=== PATIENT | female | born 1950 | race Caucasian/White ===

== ENCOUNTER 2024-02-11 20:30 | Emergency (ER) | payer BC, MEDICARE ==
[2024-02-11 20:48] VITALS: TEMP 98.2
--- NOTE | 2024-02-11 22:00 | ED ---
General Adult HPI - General Chief complaint: Nausea/Vomiting/Diarrhea Stated complaint: diarrhea, shoulder pain Time Seen by Provider: 02/11/24 21:19 Source: patient, RN notes reviewed Mode of arrival: wheelchair Limitations: no limitations - History of Present Illness Initial comments: 73-year-old female with past medical history significant for COPD presenting to the ED with a chief complaint of diarrhea. Patient reports for the past 70 days has had nonbloody diarrhea with associated abdominal pain. States that today, recently started to use Imodium which has resolved this diarrhea and has no further complaints of diarrhea. However, still notes ongoing abdominal pain which is diffuse in nature. reports that she had some nausea earlier in the week however this has resolved at this time. Patient reports that she has ongoing complaints of chest pain and shortness of breath however this is not worse than usual. States today, her left shoulder started to hurt. Denies any known injury or trauma. No fever or chills. No other complaints at this time. - Related Data Allergies Allergy/AdvReac Type Severity Reaction Status Date / Time Opioids - Morphine Analogues AdvReac Hallucinati Verified 02/11/24 20:38 ons Sulfa (Sulfonamide AdvReac Anaphylaxis Verified 02/11/24 20:38 Antibiotics) Review of Systems ROS Statement: Those systems with pertinent positive or pertinent negative responses have been documented in the HPI. ROS Other: All systems not noted in ROS Statement are negative. Past Medical History Past Medical History: Diabetes Mellitus, Hypertension History of Any Multi-Drug Resistant Organisms: None Reported Past Surgical History: Back Surgery Additional Past Surgical History / Comment(s): triple bypass Past Psychological History: Depression Smoking Status: Current some day smoker Past Alcohol Use History: None Reported Past Drug Use History: None Reported General Exam Limitations: no limitations General appearance: alert Eye exam: Present: normal appearance Neck exam: Present: normal inspection Respiratory exam: Present: normal lung sounds bilaterally. Absent: respiratory distress, accessory muscle use Cardiovascular Exam: Present: regular rate GI/Abdominal exam: Present: soft (Diffuse abdominal tenderness to palpation. No rebound guarding or rigidity. Bowel sounds present.) Neurological exam: Present: alert, oriented X3 Skin exam: Present: warm, dry Course Vital Signs 02/11/24 02/11/24 02/11/24 20:32 22:37 23:54 Temperature 98.2 F Pulse Rate 58 L 52 L 52 L Respiratory 18 18 18 Rate Blood Pressure 147/79 184/79 169/63 O2 Sat by Pulse 97 96 96 Oximetry Medical Decision Making - Medical Decision Making Was pt. sent in by a medical professional or institution ([facility], [facility], urgent care, hospital, or [place] [facility] [place] facility...) When possible be specific @ -No Did you speak to anyone other than the patient for history (EMS, parent, family, police, friend...)? What history was obtained from this source @ -No Did you review nursing and triage notes (agree or disagree)? Why? @ -I reviewed and agree with nursing and triage notes Were old charts reviewed (outside hosp., previous admission, EMS record, old EKG, old radiological studies, urgent care reports/EKG's, [place] health care facility records)? Report findings @ -No old charts were reviewed Differential Diagnosis (chest pain, altered mental status, abdominal pain women, abdominal pain men, vaginal bleeding, weakness, fever, dyspnea, syncope, hea dache, dizziness, GI bleed, back pain, seizure, CVA, palpatations, mental health, musculoskeletal)? @ -Differential Abdominal Pain Women: Appendicitis, Cholecystitis, diverticulosis, ischemic bowel, pancreatitis, hepatitis, UTI, gastroenteritis, AAA, incarcerated hernia, bowel obstruction, constipation, inflammatory bowel, hepatitis, peptic ulcer disease, splenic infarction, perforated viscus, vulvitis, ovarian torsion, PID, kidney stone, placenta abruption, this is not meant to be an all-inclusive list Differential Chest Pain: Stable Angina, Unstable Angina, STEMI, NSTEMI Aortic Dissection, Pneumothorax, Musculoskeletal, Esophageal Spasm GERD, Cholecystitis, Pancreatitis, Zoster, this is not meant to be an all-inclusive list. EKG interpreted by me (3pts min.). @ -EKG interpreted by me showing a sinus bradycardia at [address] T wave changes, MN 188, QRS 96, QT/QTc 436/506. No old for comparison. X-rays interpreted by me (1pt min.). @ -Chest x-ray interpreted me which revealed trace left pleural effusion, no other findings. Shoulder x-ray interpreted me which revealed no evidence of acute finding. CT interpreted by me (1pt min.). @ -CT abdomen pelvis interpreted me which revealed no evidence of acute finding. U/S interpreted by me (1pt. min.). @ -None done What testing was considered but not performed or refused? (CT, X-rays, U/S, labs)? Why? @ -None What meds were considered but not given or refused? Why? @ -None Did you discuss the management of the patient with other professionals (professionals i.e. , PA, [facility], lab, RT, psych nurse, social director, waiter/waitress room service, teacher, combat information center officer, patient case coordinator)? Give summary @ -No Was smoking cessation discussed for >3mins.? @ -No Was critical care preformed (if so, how long)? @ -No Were there social determinants of health that impacted care today? How? (Homelessness, low income, unemployed, alcoholism, drug addiction, transportation, low edu. Level, literacy, decrease access to med. care, retirement, rehab)? @ -No Was there de-escalation of care discussed even if they declined (Discuss DNR or withdrawal of care, Hospice)? DNR status @ -No What co-morbidities impacted this encounter? (DM, HTN, Smoking, COPD, CAD, Cancer, CVA, ARF, Chemo, Hep., AIDS, mental health diagnosis, sleep apnea, morbid obesity)? @ -None Was patient admitted / discharged? Hospital course, mention meds given and route, prescriptions, significant lab abnormalities, going to OR and other pertinent info. @ -Discharge 73-year-old female presents to the ED with complaints of diffuse abdominal pain for the past week with some nonbloody diarrhea as well. Also notes left shoulder pain today no known trauma. Laboratory studies reviewed. CBC does show an elevated white blood cell count of 12.9. Chemistry panel largely unremarkable however is finding of hypomagnesemia at 1.0. Lipase was also elevated at 307. EKG showed diffuse ST T wave changes however at this time patient denies chest pain or shortness of breath. Serial troponins were performed which were both undetectable. Urine unremarkable. Magnesium was repleted. Chest x-ray reviewed which revealed no evidence of acute finding. Shoulder x-ray revealed no evidence of acute finding. CT abdomen pelvis revealed no evidence of acute finding. Patient reported significant improvement of pain with analgesia provided here. Secondary to EKG findings patient was offered observation stay however at this time would like to go home and follow- up with her counter person. Discharged home in stable condition. Discussed tricked return precautions with patient who verbalized agreement. Undiagnosed new problem with uncertain prognosis? @ -No Drug Therapy requiring intensive monitoring for toxicity (Heparin, Nitro, Insulin, Cardizem)? @ -No Were any procedures done? @ -No Diagnosis/symptom? @ -Abdominal pain, shoulder pain, diarrhea, hypomagnesemia Acute, or Chronic, or Acute on Chronic? @ -Acute Uncomplicated (without systemic symptoms) or Complicated (systemic symptoms)? @ -Uncomplicated Side effects of treatment? @ -No Exacerbation, Progression, or Severe Exacerbation? @ -No Poses a threat to life or bodily function? How? (Chest pain, USA, SD, pneumonia, PE, COPD, DKA, ARF, appy, cholecystitis, CVA, Diverticulitis, Homicidal, Suicidal, threat to staff... and all critical care pts) @ -No - Lab Data Result diagrams: 02/11/24 22:18 02/11/24 22:18 Lab Results 02/11/24 02/11/24 02/11/24 Range/Units 22:18 22:18 22:18 WBC 12.9 H (3.8-10.6) k/uL RBC 3.95 (3.80-5.40) m/uL Hgb 12.2 (11.4-16.0) gm/dL Hct 36.8 (34.0-46.0) % MCV 93.3 (80.0-100.0) fL MCH 31.0 (25.0-35.0) pg MCHC 33.3 (31.0-37.0) g/dL RDW 13.7 (11.5-15.5) % Plt Count 349 (150-450) k/uL MPV 10.8 Neutrophils % 81 % Lymphocytes % 9 % Monocytes % 7 % Eosinophils % 1 % Basophils % 0 % Neutrophils # 10.5 H (1.3-7.7) k/uL Lymphocytes # 1.2 (1.0-4.8) k/uL Monocytes # 0.9 (0-1.0) k/uL Eosinophils # 0.1 (0-0.7) k/uL Basophils # 0.1 (0-0.2) k/uL PT 11.0 (10.0-12.5) sec INR 1.0 (<1.2) APTT 24.5 (22.0-30.0) sec Sodium 134 L (137-145) mmol/L Potassium 3.5 (3.5-5.1) mmol/L Chloride 99 (98-107) mmol/L Carbon Dioxide 28 (22-30) mmol/L Anion Gap 7 mmol/L BUN 24 H (7-17) mg/dL Creatinine 0.87 (0.52-1.04) mg/dL Est GFR (CKD-EPI)AfAm 76 (>60 ml/min/1.73 sqM) Est GFR (CKD-EPI)NonAf 66 (>60 ml/min/1.73 sqM) Glucose 223 H (74-99) mg/dL Calcium 9.4 (8.4-10.2) mg/dL Magnesium 1.0 L (1.6-2.3) mg/dL Total Bilirubin 0.5 (0.2-1.3) mg/dL AST 27 (14-36) U/L ALT 16 (4-34) U/L Alkaline Phosphatase 47 (38-126) U/L Troponin I (0.000-0.034) ng/mL Total Protein 6.3 (6.3-8.2) g/dL Albumin 3.5 (3.5-5.0) g/dL Amylase 82 (30-110) U/L Lipase 307 H (23-300) U/L Urine Color Urine Appearance (Clear) Urine pH (5.0-8.0) Ur Specific [place] (1.001-1.035) Urine Protein (Negative) Urine Glucose (UA) (Negative) Urine Ketones (Negative) Urine Blood (Negative) Urine Nitrite (Negative) Urine Bilirubin (Negative) Urine Urobilinogen (<2.0) mg/dL Ur Leukocyte Esterase (Negative) 02/11/24 02/11/24 02/12/24 Range/Units 22:18 23:53 01:10 WBC (3.8-10.6) k/uL RBC (3.80-5.40) m/uL Hgb (11.4-16.0) gm/dL Hct (34.0-46.0) % MCV (80.0-100.0) fL MCH (25.0-35.0) pg MCHC (31.0-37.0) g/dL RDW (11.5-15.5) % Plt Count (150-450) k/uL MPV Neutrophils % % Lymphocytes % % Monocytes % % Eosinophils % % Basophils % % Neutrophils # (1.3-7.7) k/uL Lymphocytes # (1.0-4.8) k/uL Monocytes # (0-1.0) k/uL Eosinophils # (0-0.7) k/uL Basophils # (0-0.2) k/uL PT (10.0-12.5) sec INR (<1.2) APTT (22.0-30.0) sec Sodium (137-145) mmol/L Potassium (3.5-5.1) mmol/L Chloride (98-107) mmol/L Carbon Dioxide (22-30) mmol/L Anion Gap mmol/L BUN (7-17) mg/dL Creatinine (0.52-1.04) mg/dL Est GFR (CKD-EPI)AfAm (>60 ml/min/1.73 sqM) Est GFR (CKD-EPI)NonAf (>60 ml/min/1.73 sqM) Glucose (74-99) mg/dL Calcium (8.4-10.2) mg/dL Magnesium (1.6-2.3) mg/dL Total Bilirubin (0.2-1.3) mg/dL AST (14-36) U/L ALT (4-34) U/L Alkaline Phosphatase (38-126) U/L Troponin I <0.012 <0.012 (0.000-0.034) ng/mL Total Protein (6.3-8.2) g/dL Albumin (3.5-5.0) g/dL Amylase (30-110) U/L Lipase (23-300) U/L Urine Color Colorless Urine Appearance Clear (Clear) Urine pH 5.0 (5.0-8.0) Ur Specific [place] 1.011 (1.001-1.035) Urine Protein Negative (Negative) Urine Glucose (UA) 1+ H (Negative) Urine Ketones Negative (Negative) Urine Blood Negative (Negative) Urine Nitrite Negative (Negative) Urine Bilirubin Negative (Negative) Urine Urobilinogen <2.0 (<2.0) mg/dL Ur Leukocyte Esterase Negative (Negative) Disposition Clinical Impression: Abdominal pain, Left shoulder pain, Diarrhea Disposition: HOME SELF-CARE Condition: Good Instructions (If sedation given, give patient instructions): Gastroenteritis (ED) Additional Instructions: Please return to the Emergency Department if symptoms worsen or any other concerns. Please follow-up with your PCP and counter person. Is patient prescribed a controlled substance at d/c from ED?: No Referrals: Yanira Jimenez MD [Primary Care Provider] - 1-2 days Time of Disposition: 02:32
[2024-02-11] MEDS: SODIUM CHLORIDE 0.9% 1,000 ML IV STA (22:26)
[2024-02-11] MEDS: KETOROLAC 15 MG/ML 1 ML VIAL IM STA (22:28)
[2024-02-11] MEDS: ACETAMINOPHEN TAB 500 MG TAB PO STA (22:32)
[2024-02-11 22:36] LABS: Partial Thromboplastin Time 24.5 sec (22.0-30.0)
[2024-02-11 22:38] LABS: Basophils # (A) 0.1 k/uL (0-0.2); Basophils % (A) 0 %; Eosinophils # (A) 0.1 k/uL (0-0.7); Eosinophils % (A) 1 %; HCT 36.8 % (34.0-46.0); HGB 12.2 gm/dL (11.4-16.0); Lymphocytes # (A) 1.2 k/uL (1.0-4.8); Lymphocytes % (A) 9 %; MCHC 33.3 g/dL (31.0-37.0); MCV 93.3 fL (80.0-100.0); Mean Platelet Volume 10.8; Monocytes # (A) 0.9 k/uL (0-1.0); Monocytes % (A) 7 %; Neutrophils # (A) 10.5 k/uL (1.3-7.7); Neutrophils % (A) 81 %; Platelet Count 349 k/uL (150-450); RBC 3.95 m/uL (3.80-5.40); RDW 13.7 % (11.5-15.5); WBC 12.9 k/uL (3.8-10.6)
[2024-02-11 22:39] LABS: ALT 16 U/L (4-34); AST 27 U/L (14-36); African American GFR (CKD) 76 (>60 ml/min/1.73 sqM); Albumin 3.5 g/dL (3.5-5.0); Alkaline Phosphatase 47 U/L (38-126); Amylase 82 U/L (30-110); Anion Gap 7 mmol/L; Blood Urea Nitrogen 24 mg/dL (7-17); Calcium 9.4 mg/dL (8.4-10.2); Carbon Dioxide 28 mmol/L (22-30); Chloride 99 mmol/L (98-107); Glucose 223 mg/dL (74-99); Lipase 307 U/L (23-300); Non-African American GFR(CKD) 66 (>60 ml/min/1.73 sqM); Potassium 3.5 mmol/L (3.5-5.1); Sodium 134 mmol/L (137-145); Total Bilirubin 0.5 mg/dL (0.2-1.3); Total Protein 6.3 g/dL (6.3-8.2)
--- NOTE | 2024-02-11 23:58 | CT ---
EXAM: CT Abdomen and Pelvis With Intravenous Contrast CLINICAL HISTORY: ITS.REASON CT Reason: diffuse abdominal pain TECHNIQUE: Axial computed tomography images of the abdomen and pelvis with intravenous contrast. CTDI is 20.2 mGy and DLP is 912.1 mGy-cm. This CT exam was performed using one or more of the following dose reduction techniques: automated exposure control, adjustment of the mA and/or kV according to patient size, and/or use of iterative reconstruction technique. COMPARISON: No relevant prior studies available. FINDINGS: Lung bases: Unremarkable. No mass. No consolidation. ABDOMEN: Liver: Hepatic steatosis. Gallbladder and bile ducts: Cholecystectomy. No ductal dilation. Pancreas: Unremarkable. No mass. No ductal dilation. Spleen: Unremarkable. No splenomegaly. Adrenals: Unremarkable. No mass. Kidneys and ureters: Unremarkable. No hydronephrosis or delayed nephrogram. Stomach and bowel: Diverticulosis, without acute diverticulitis. No small bowel obstruction. No free intraperitoneal air. PELVIS: Appendix: Normal appendix. Bladder: Unremarkable. No mass. Reproductive: RIGHT ovarian cyst measures 4.5 x 3 cm. Atrophy of the uterus. ABDOMEN and PELVIS: Intraperitoneal space: Unremarkable. No free air. No significant fluid collection. Bones/joints: Degenerative changes of the spine. No acute fracture. No dislocation. Soft tissues: Unremarkable. Vasculature: Atherosclerotic changes of the aorta. No abdominal aortic aneurysm. Lymph nodes: Unremarkable. No enlarged lymph nodes. IMPRESSION: 1. Normal appendix. 2. Hepatic steatosis. 3. Cholecystectomy. 4. RIGHT ovarian cyst measures 4.5 x 3 cm. Nonemergent pelvic ultrasound correlation recommended. Posterior fusion L4-S1. 5. Diverticulosis, without acute diverticulitis. No small bowel obstruction. No free intraperitoneal air.
[2024-02-12 00:21] LABS: Appearance,Urine Clear (Clear); Bilirubin,Urine Negative (Negative); Blood,Urine Negative (Negative); Color,Urine Colorless; Glucose,Urine (UA) 1+ (Negative); Ketones,Urine Negative (Negative); Leukocyte Esterase,Urine Negative (Negative); Nitrite,Urine Negative (Negative); Protein,Urine Negative (Negative); Specific Gravity,Urine 1.011 (1.001-1.035); Urobilinogen,Urine <2.0 mg/dL (<2.0)
--- NOTE | 2024-02-12 00:39 | XR ---
EXAM: XR Chest, 2 Views CLINICAL HISTORY: ITS.REASON XR Reason: Chest Pain TECHNIQUE: Frontal and lateral views of the chest. COMPARISON: No relevant prior studies available. FINDINGS: Lungs: Unremarkable. No consolidation. Pleural space: Trace LEFT pleural effusion. No pneumothorax. Heart: Cardiomegaly. Mediastinum: Unremarkable. Normal mediastinal contour. Bones/joints: Sternotomy wires. No acute fracture. IMPRESSION: Trace LEFT pleural effusion.
--- NOTE | 2024-02-12 00:41 | XR ---
EXAM: XR Left Shoulder Complete, 2 or More Views CLINICAL HISTORY: ITS.REASON XR Reason: left shoulder pain TECHNIQUE: Two or more views of the left shoulder. COMPARISON: No relevant prior studies available. FINDINGS: Limitations: Evaluation limited due to suboptimal patient positioning. Bones/joints: Osseous demineralization. No fracture or subluxation. Soft tissues: Unremarkable. IMPRESSION: No fracture or subluxation.
[2024-02-12] MEDS: MAGNESIUM SULFATE-D5W PMX 1 GM in DEXTROSE/WATER 1 100ML.BAG IVPB SCH (03:01)
[2024-02-12 04:59] VITALS: BP 151/72; PULSE 54; RESP 14
== END 2024-02-12 05:31 | disposition home or self-care (01) ==
LOC: EC 20:30
DX: K76.0 Fatty (change of) liver, not elsewhere classified (principal); N83.201 Unspecified ovarian cyst, right side; M25.512 Pain in left shoulder; E83.42 Hypomagnesemia; F17.200 Nicotine dependence, unspecified, uncomplicated; Z88.2 Allergy status to sulfonamides; Z88.5 Allergy status to narcotic agent
CPT/HCPCS: 36415 ×2; 93005; 80053; 82150; 83690; 83735; 84484 ×2; 85025; 85610; 85730; 81003; 73030; 71046; 74177; 99285; 96372; 96365; 96366; 96361; J3475; J1885; Q9967

== ENCOUNTER 2024-07-28 07:58 | Day surgery (SDC) | payer MEDICARE ==
[~2024-07-28 07:58] MED LIST: LIDOCAINE 1% (10MG/ML) FOR IV START INTRADERMA PRN
[2024-07-28] MEDS: IV FLUID CONTINUATION 1,000 ML IV ONE (08:16)
[2024-07-28 08:24] VITALS: TEMP 97
[2024-07-28] MEDS: LACTATED RINGERS 1,000 ML IV SCH (08:31)
[2024-07-28] MEDS ORDERED: PROPOFOL 10 MG/ML 20 ML VIAL IV ONE (09:12)
--- NOTE | 2024-07-28 09:39 | P.PCN ---
Date of Procedure: 07/28/24 Procedure(s) Performed: BRIEF HISTORY: Patient is a 69-year-old pleasant white female scheduled for an elective colonoscopy as a part of dilation points of colon polyps and chronic diarrhea for the last 6 months duration. PROCEDURE PERFORMED: Colonoscopy. PREOPERATIVE DIAGNOSIS: History of colon polyps and chronic diarrhea. IV sedation per Anesthesia. PROCEDURE: After informed consent was obtained, the patient, was brought into the endoscopy unit. IV sedation was administered by Anesthesia under continuous monitoring. Digital rectal examination was normal. Initially the Olympus CF-160 flexible video colonoscope was then inserted in the rectum, gradually advanced into the cecum without any difficulty. Careful examination was performed as the scope was gradually being withdrawn. Ileocecal valve and the appendiceal orifice were visualized and appeared normal. Prep was excellent. Mucosa of the cecum, ascending colon, transverse colon, descending colon, sigmoid colon, and rectum appeared normal. Scattered sigmoid diverticulosis. Random biopsies were done from the ascending and descending colon to evaluate for microscopic/collagenous colitis retroflexion was performed in the rectum and no lesions were seen. The patient tolerated the procedure well. IMPRESSION: Normal-appearing colon from rectum to cecum no evidence of colorectal neoplasia Scattered sigmoid diverticulosis. . RECOMMENDATIONS: Findings of this examination were discussed with the patient as well as her family. She was advised to follow-up with the biopsy results. Continue with Imodium as needed for chronic diarrhea.
[2024-07-28 10:28] VITALS: BP 136/72; PULSE 62; RESP 18
== END 2024-07-28 10:20 | disposition home or self-care (01) ==
LOC: ORWHC2ENDO 07:58
PROVIDERS: ATTEND Internal Medicine Gastroenterology
DX: K52.9 Noninfective gastroenteritis and colitis, unspecified (principal); K57.30 Diverticulosis of large intestine without perforation or abscess without bleeding; Z86.0100 Personal history of colon polyps, unspecified; Z79.899 Other long term (current) drug therapy; Z79.84 Long term (current) use of oral hypoglycemic drugs
CPT/HCPCS: 88305; 45380; J2704

== ENCOUNTER → 2024-08-17 | Outpatient (CLI) | payer MEDICARE ==
--- NOTE | 2024-08-17 23:38 | MR ---
EXAMINATION TYPE: MR shoulder LT wo con DATE OF EXAM: 08/17/2024 11:49 AM COMPARISON: Left shoulder x-ray February 11, 2024. CLINICAL INDICATION: Female, 74 years old with history of M25.512 L SHOULDER PAIN, Left shoulder pain with difficulty raising arm overhead since January. TECHNIQUE: Multiplanar, multisequence imaging of the left shoulder is performed without contrast. FINDINGS: Rotator Cuff: Full-thickness retracted tears of the supraspinatus and infraspinatus tendons. Heteroge neous subscapularis tendon with at least partial tearing. There is moderate atrophy of all the rotato r cuff muscles. Acromioclavicular Joint: Moderate narrowing with mild spurring. Glenohumeral Joint: High riding humeral head is seen. Severe narrowing superiorly is present. No sign ificant spurring. Moderate sized joint effusion Labrum: Large tear through the superior labrum is identified. Biceps Tendon: The long head of biceps is in normal location within bicipital groove. Intracapsular p ortion is not well seen impression torn. Bone marrow signal: No focal abnormal marrow signal is appreciated. Other: Mild edema surrounding supraspinatus tendon. More prominent edema surrounding infraspinatus mu scle bulk. IMPRESSION: 1. Large superior labral tear including possible osseous glenoid involvement. Likely tear of the labr al anchor of the long head of biceps tendon. 2. Full-thickness retracted tears of supraspinatus and infraspinatus tendons. High riding humeral hea d suggests underlying instability. 3. Moderate-sized glenohumeral joint effusion. 4. Tendinosis and partial tearing of the subscapularis tendon. 5. Marked edema through the infraspinatus muscle. [facility], , 08/17/2024 11:36 PM
== END | disposition home or self-care (01) ==
LOC: RADMRIMAIN 11:07
PROVIDERS: ATTEND Orthopaedic Surgery
DX: S43.432A Superior glenoid labrum lesion of left shoulder, initial encounter (principal); S46.012A Strain of muscle(s) and tendon(s) of the rotator cuff of left shoulder, initial encounter; M25.412 Effusion, left shoulder; M67.814 Other specified disorders of tendon, left shoulder; R60.9 Edema, unspecified

== ENCOUNTER → 2024-10-06 | Outpatient (CLI) | payer MEDICARE | END | disposition home or self-care (01) | LOC: LABPAT 10:45 | PROVIDERS: ATTEND Orthopaedic Surgery | DX: M12.811 Other specific arthropathies, not elsewhere classified, right shoulder (principal); Z22.322 Carrier or suspected carrier of Methicillin resistant Staphylococcus aureus | CPT/HCPCS: 87070 ==

== ENCOUNTER 2024-10-15 05:54 | Observation (INO) | payer MEDICARE ==
[2024-10-11 12:30] VITALS: BMI 25.0
--- NOTE | 2024-10-14 08:57 | P.HPOR ---
History of Present Illness H&P Date: 10/14/24 Chief Complaint: Left shoulder pain and weakness The patient is a 74-year-old [id number] retired female who presents with left shoulder pain and weakness this been going on since January of last year. She is having pain with any attempted overhead use. She has tried injections, medications, and therapy without any real relief. She notes daily pain. She has a difficult time raising her arm at all over her head. Review of Systems Per HPI Past Medical History Past Medical History: Coronary Artery Disease (CAD), Chest Pain / Angina, COPD, Diabetes Mellitus, GERD/Reflux, Hearing Disorder / Deafness, Hyperlipidemia, Hypertension, Renal Disease, Skin Disorder, Sleep Apnea/CPAP/BIPAP, Thyroid Disorder Additional Past Medical History / Comment(s): Current Seborrheic dermat itis/psoriasis and foliculitis on scalp- pt states she has wounds d/t scratching her scalp.seasonal allergies, IBS, ckd, doesn't use cpap. Urinary incontinence. "Abnormal heartbeat" "Iron a lttle low.' "Memory Imbalance." Type II diabetic NIDDM. Arthritis. "They nuked my thyroid. " "I have Graves disease." History of Any Multi-Drug Resistant Organisms: None Reported Past Surgical History: Appendectomy, Back Surgery, Cholecystectomy, Coronary Bypass/CABG, Tonsillectomy, Tubal Ligation Additional Past Surgical History / Comment(s): triple bypass at age 44. Colonoscopy. Past Anesthesia/Blood Transfusion Reactions: No Reported Reaction, Postoperative Nausea & Vomiting (PONV) Additional Past Anesthesia/Blood Transfusion Reaction / Comment(s): No hx of blood transfusions to date. Smoking Status: Former smoker - Past Family History Father Family Medical History: No Reported History Medications and Allergies Home Medications Medication Instructions Recorded Confirmed Type Acetaminophen [Tylenol Extra 1 - 2 tab PO Q8H PRN 07/27/24 10/11/24 History Strength] Aspirin [Adult Low Dose Aspirin EC] 81 mg PO QAM 07/27/24 10/11/24 History Chlorthalidone 25 mg PO QAM 07/27/24 10/11/24 History Citalopram Hydrobromide 40 mg PO QAM 07/27/24 10/11/24 History [Citalopram HBr] Donepezil HCl [Aricept] 10 mg PO QAM 07/27/24 10/11/24 History Ezetimibe [Zetia] 10 mg PO QAM 07/27/24 10/11/24 History Fenofibrate Nanocrystallized 145 mg PO QAM 07/27/24 10/11/24 History [Fenofibrate] Levothyroxine Sodium 125 mcg PO QAM 07/27/24 10/11/24 History Magnesium(Unk) 1 tab PO QAM 07/27/24 10/11/24 History Metoprolol Succinate (ER) [Toprol 50 mg PO QAM 07/27/24 10/11/24 History Xl] Multivit-Min/Iron/Folic/Lutein 1 each PO QAM 07/27/24 10/11/24 History [Centrum Silver Women Tablet] Omeprazole [PriLOSEC] 20 mg PO AC-BRKFST 07/27/24 10/11/24 History Potassium Gluconate(Unk) 1 tab PO QAM 07/27/24 10/11/24 History Tiotropium 18 Mcg/Puff [Spiriva] 1 puff INHALATION HS 07/27/24 10/11/24 History lisinopriL 40 mg PO HS 07/27/24 10/11/24 History metFORMIN HCL ER [Glucophage XR] 500 mg PO 1700 07/27/24 10/11/24 History traZODone HCL [Desyrel] 50 mg PO HS 07/27/24 10/11/24 History Cephalexin [Keflex] 500 mg PO Q12HR 10/11/24 10/11/24 History Fexofenadine HCl [Orin Allergy] 180 mg PO QAM PRN 10/11/24 10/11/24 History Fluocinonide [Lidex 0.05%] 1 applic TOPICAL HS 10/11/24 10/11/24 History Iron Glycinate(Unknown Dose) 2 tab PO QAM 10/11/24 10/11/24 History NIFEdipine [Adalat CC] 30 mg PO QAM 10/11/24 10/11/24 History Allergies Allergy/AdvReac Type Severity Reaction Status Date / Time Opioids - Morphine Analogues AdvReac Hallucinati Verified 10/11/24 11:53 ons Sulfa (Sulfonamide AdvReac Anaphylaxis Verified 10/11/24 11:53 Antibiotics) Physical Examination - Shoulder left Appearance: effusion Tenderness with palpation: anterior, bicipital groove Pain: with abduction, with forward flexion ROM: forward flexion: 20 degrees ROM: internal rotation: low thoracic ROM: external rotation: 50 degrees Crepitus with motion: Yes Strength: abduction: 3/5 Strength: external rotation: 4/5 Tests: internal impingement tests: positive, external impingment tests: positive Results Patient is a well-developed well-nourished female approximately 5 foot 8, 165 pounds of mesomorphic habitus. HEENT exam is nonfocal, neck is supple. She is tender about the left anterior glenohumeral joint. Moderate crepitus is noted. Passively I am able to forward elevate the left shoulder to 140 degrees. Impingement test, Neer test, and Speed test are positive. Her distal neurovascular exam appears intact in the left upper extremity. - Diagnostic results Shoulder MRI: image reviewed (MRI of the left shoulder shows evidence of a large retracted rotator cuff tear along with a supra labral tear.) Assessment and Plan Assessment: Left rotator cuff arthropathy/chronic large retracted rotator cuff tear Plan: I talked to the patient at length regarding her condition along with treatment options. At this point she is quite symptomatic having pain and weakness despite attempted conservative measures. After a thorough discussion she opts to proceed with surgery. We will plan to proceed with a left reverse total shoulder arthroplasty. Risks and benefits were discussed at length in layman's terms. We will likely keep the patient for 23-hour hold postoperatively.
[~2024-10-15 05:54] MED LIST changes: -LIDOCAINE 1% (10MG/ML) FOR IV START INTRADERMA PRN; +TRANEXAMIC 1,000 MG/100ML-NACL 1,000 MG in SALINE 1 100ML.BAG IVPB PRN
[2024-10-15] MEDS: ACETAMINOPHEN TAB 500 MG TAB PO PRN (06:44)
[2024-10-15] MEDS: MELOXICAM 7.5 MG TAB PO PRN (06:44)
[2024-10-15 06:56] LABS: Glucose,Whole Blood 101 mg/dL (70-110)
[2024-10-15] MEDS ORDERED: fentaNYL (PF) 50 MCG/ML 2 ML AMP IV PRN (07:00)
[2024-10-15] MEDS ORDERED: MIDAZOLAM 2 MG/2 ML VIAL IV PRN (07:00)
[2024-10-15] MEDS: LACTATED RINGERS 1,000 ML IV SCH (07:08)
[2024-10-15] MEDS: DEXAMETHASONE SOD PHOSPHATE 4 MG/ML 1 ML VIAL IV ONE (07:08)
[2024-10-15] MEDS: ONDANSETRON 4 MG/2 ML VIAL IVP ONE (07:08)
[2024-10-15 07:12] LABS: HCT 33.4 % (34.0-46.0); HGB 10.8 gm/dL (11.4-16.0); Hypochromasia Slight; MCH 29.8 pg (25.0-35.0); MCHC 32.4 g/dL (31.0-37.0); MCV 92.2 fL (80.0-100.0); Mean Platelet Volume 8.7; Platelet Count 418 k/uL (150-450); RBC 3.63 m/uL (3.80-5.40); RDW 14.3 % (11.5-15.5); WBC 8.6 k/uL (3.8-10.6)
[2024-10-15 07:14] LABS: INR 1.1 (<1.2); Prothrombin Time 11.5 sec (10.0-12.5)
[2024-10-15] MEDS: IV FLUID CONTINUATION 1,000 ML IV ONE (07:21)
[2024-10-15 07:26] LABS: African American GFR (CKD) 60 (>60 ml/min/1.73 sqM); Anion Gap 6 mmol/L; Blood Urea Nitrogen 24 mg/dL (7-17); Calcium 9.9 mg/dL (8.4-10.2); Carbon Dioxide 30 mmol/L (22-30); Chloride 106 mmol/L (98-107); Glucose 99 mg/dL (74-99); Non-African American GFR(CKD) 52 (>60 ml/min/1.73 sqM); Potassium 4.2 mmol/L (3.5-5.1); Sodium 142 mmol/L (137-145)
[2024-10-15] MEDS: fentaNYL (PF) 50 MCG/ML 2 ML AMP IVP ONE (07:35)
[2024-10-15] MEDS: MIDAZOLAM 2 MG/2 ML VIAL IVP ONE (07:35)
[2024-10-15] MEDS ORDERED: TRANEXAMIC 1,000 MG/100ML-NACL PREMIX BAG ONE (07:39)
[2024-10-15] MEDS ORDERED: ROCURONIUM 10 MG/ML (5 ML VIAL) IV ONE (07:39)
[2024-10-15] MEDS ORDERED: PHENYLEPHRINE 10 MG/ML VIAL ONE (07:39)
[2024-10-15] MEDS ORDERED: PROPOFOL 10 MG/ML 20 ML VIAL IV ONE (07:39)
[2024-10-15] MEDS ORDERED: LIDOCAINE 1% INJ 10MG/ML (20 ML MDV) ONE (07:39)
[2024-10-15] MEDS ORDERED: SUCCINYLCHOLINE CHLORIDE 200 MG/10 ML VIAL IV ONE (07:39)
[2024-10-15] MEDS ORDERED: ROPIVACAINE 5 MG/ML 30 ML VIAL ONE (07:39)
[2024-10-15] MEDS ORDERED: fentaNYL (PF) 50 MCG/ML 2 ML AMP ONE (07:39)
[2024-10-15] MEDS ORDERED: NEOSTIGMINE 1 MG/ML 10 ML VIAL ONE (07:39)
[2024-10-15] MEDS ORDERED: ePHEDrine 50 MG/ML 1 ML VIAL ONE (07:39)
[2024-10-15] MEDS ORDERED: GLYCOPYRROLATE 0.2 MG/ML 2 ML VIAL ONE (07:39)
[2024-10-15] MEDS: ceFAZolin 1,000 MG in SODIUM CHLORIDE 0.9% 1,000 ML IRRIGATION ONE (07:54)
[2024-10-15] MEDS: LACTATED RINGERS 1,000 ML IV ONE (08:41)
[2024-10-15] MEDS ORDERED: SENNOSIDES-DOCUSATE SODIUM 1 EACH TAB PO PRN (09:33)
[2024-10-15] MEDS ORDERED: HYDROcodone/APAP 5-325MG 1 EACH TAB PO PRN (09:33)
--- NOTE | 2024-10-15 09:45 | P.OP ---
Date of Procedure: 10/15/24 Preoperative Diagnosis: Left shoulder rotator cuff arthropathy Postoperative Diagnosis: Same Procedure(s) Performed: Left reverse total shoulder arthroplasty Implants: DePuy Delta Xtend size 8 press-fit humeral stem with a size 1 epiphysis, 38+9 articular surface, 38 mm glenosphere with standard baseplate. Anesthesia: laina SOSA Surgeon: Gutierrez Riojas Casting Assistant #1: Keyon Poon Estimated Blood Loss (ml): 100 Pathology: none sent Condition: stable Disposition: PACU Indications for Procedure: The patient is a 74-year-old female who presents with progressive left shoulder pain and weakness secondary to rotator cuff arthropathy despite conservative measures. A discussion of the risks and benefits of operative intervention versus continued conservative measures was made with the patient. She opted to proceed with surgery. Operative risks include infection, neurovascular injury, development of blood clots, fracture, possible component loosening/failure, possible instability, and possible need for subsequent procedures was discussed. Informed consent was obtained. Operative Findings: As below Description of Procedure: The patient was brought to the operating room, and after induction of general anesthesia was placed in a beachchair position. The bony prominences were appropriately padded. I examined the left shoulder. There was moderate lack of passive forward elevation and external rotation. The left upper extremity was prepped and draped in normal fashion. The bony outlines the coracoid process, distal clavicle, and acromion were outlined with a skin marker. A pulse centimeter deltopectoral incision was made lateral to the coracoid process. Skin was incised sharply. Subcutaneous tissues were divided bluntly. Electrocautery was used for hemostasis. The cephalic vein was identified and gently retracted laterally with the deltoid. The deltopectoral was bluntly developed. Subdeltoid adhesions were then released. The self-retaining retractor was placed. The conjoined tendon was retracted medially and the deltoid laterally. The biceps was identified. Its sheath was opened. A biceps tenotomy was performed along the remaining tendon did retract distally. Pseudocapsule was excised. The head was then exposed. Retracted full-thickness tears involving the supraspinatus, infraspinatus, and teres minor were noted. I did release the subscapularis off the lesser tuberosity and this was tagged with #2 Ethibond suture. The shoulder was dislocated. A starting hole was made in line with the humeral shaft. The canal was reamed by hand up to size 8. There was good distal chatter. The cutting guide was then placed. I planned on 20 of retroversion. The humeral head cut was then made. The bone was removed in one fragment. Residual inferomedial osteophytes were removed flush with the bill moore's slough cortical bone. Attention was then paid towards preparing the glenoid. An anterior and posterior retractors placed. The labrum was released from the 6-12 o'clock position. Remaining biceps was removed as well. A guidepin was placed in the inferior aspect of the glenoid with the guide slightly tilting inferior. The reamer was used down to a bleeding bony surface. The central peg hole was drilled. The standard baseplate was inserted with good purchase. Inferior, superior, and posterior locking screws the appropriate length were placed. Good purchase was obtained. The 38 mm glenosphere was inserted over a guidewire. This was fully seated. Care was taken to avoid any soft tissue interposition. Attention was then paid towards preparing the proximal humerus. The appropriate broach was placed and 20 of retroversion and was fully seated. An eccentric size 1 epiphyseal reamer was utilized. A size 8 stem with a size 1 epiphysis was placed and 20 of retroversion. Trial reduction was obtained with a 38 mm + 9 articular surface. The shoulder was taken through range of motion. He was felt to be stable in flexion and extension with internal and external rotation. I felt there was adequate catholic of soft tissue tension judging off the conjoined tendon. The shoulder was gently dislocated. The trial components were then removed. The final size 8 press-fit stem along with a size 1 epiphysis was fully seated. There was good rotational stability. The 38 mm + 9 articular surface was impacted. The shoulder again was gently reduced and taken through range of motion. Again it was felt to be stable in all planes. Pulsatile lavage was utilized. The subscapularis was a attached to the lesser tuberosity with #2 Ethibond suture. The deltopectoral interval was closed with interrupted 2-0 Vicryl sutures. The skin was reapproximated with 3- 0 subcuticular Prolene suture. Steri-Strips were applied. A sterile dressing was applied. A sling was placed. The patient was awoken from general anesthesia and transferred to recovery room in good condition. Blood loss was estimated at 100 mL. No complications were incurred. Sponge and needle counts were correct at the end the case. Weston MARTIN assisted during the major components of the case to include exposure, glenoid and humeral preparation, implantation, and closure.
[2024-10-15 10:02] LABS: Glucose,Whole Blood 148 mg/dL (70-110)
--- NOTE | 2024-10-15 10:20 | XR ---
EXAMINATION TYPE: XR shoulder complete LT DATE OF EXAM: 10/15/2024 10:12 AM COMPARISON: None CLINICAL INDICATION: Female, 74 years old with history of s/p left reverse total shoulder arthroplast y; PHH, pain TECHNIQUE: XR shoulder complete LT; examined in AP, internally rotated and scapular Y projections. FINDINGS: Shoulder arthroplasty with hardware intact. Subcutaneous lucencies compatible with recent surgery. No evidence for fracture. Hardware appears in tact The remaining portions of the visualized chest are unremarkable. IMPRESSION: Post shoulder arthroplasty, no evidence for immediate postop complication. [facility], , 10/15/2024 10:18 AM
[2024-10-15 11:44] LABS: Glucose,Whole Blood 164 mg/dL (70-110)
[2024-10-15 11:55] LABS: Basophils % (A) 0 %; Eosinophils % (A) 0 %; HCT 34.4 % (34.0-46.0); HGB 10.8 gm/dL (11.4-16.0); Hypochromasia Moderate; Lymphocytes # (A) 0.8 k/uL (1.0-4.8); Lymphocytes % (A) 8 %; MCH 29.4 pg (25.0-35.0); MCHC 31.4 g/dL (31.0-37.0); MCV 93.8 fL (80.0-100.0); Mean Platelet Volume 8.4; Monocytes # (A) 0.1 k/uL (0-1.0); Monocytes % (A) 1 %; Neutrophils % (A) 90 %; Platelet Count 383 k/uL (150-450); RBC 3.67 m/uL (3.80-5.40); RDW 14.1 % (11.5-15.5); WBC 10.1 k/uL (3.8-10.6)
--- NOTE | 2024-10-15 13:56 | P.ANPRN ---
Procedure Note - Anesthesia - Nerve Block Performed Left Interscalene Single Time Out Performed: Yes (0734) Date of Procedure: 10/15/24 Procedure Start Time: 07:35 Procedure Stop Time: 07:39 Location of Patient: PreOp Indication: Acute Post-Operative Pain, Requested by Surgeon Specifically requested for management of pain by : Gutierrez Riojas Sedation Type: Sedate with meaningful contact maintained Preparation: Sterile Prep Position: Supine Catheter: None Needle Types: Pajunk Needle Gauge: 21 Ultrasound used to visualize needle placement: Yes Ultrasound used to observe medication spread: Yes Injectate: 0.5% Ropivacaine (see comment for volume) (30cc) Blood Aspirated: No Pain Paresthesia on Injection Noted: No Resistance on Injection: Normal Image Stored and Saved: Yes Events: Uneventful and Well Tolerated
[2024-10-15] MEDS ORDERED: DEXTROSE 50% SYRINGE 50 ML IVP PRN ×2 (14:01)
[2024-10-15 16:41] LABS: Glucose,Whole Blood 228 mg/dL (70-110)
[2024-10-15] MEDS: INSULIN ASPART (NovoLOG) 100 UNIT/ML VIAL SQ SCH (16:42)
[2024-10-15] MEDS: Acetaminophen-Codeine 300-30mg TAB PO PRN (17:09)
[2024-10-15] MEDS: METFORMIN HCL 500 MG PO SCH (17:37)
[2024-10-15 20:48] LABS: Glucose,Whole Blood 156 mg/dL (70-110)
[2024-10-15] MEDS: HYDROmorphone 0.5 MG/0.5 ML SYRINGE IVP PRN (20:59)
[2024-10-15] MEDS: ASPIRIN 81 MG PO SCH (21:02)
[2024-10-15] MEDS: DONEPEZIL 10 MG TAB PO SCH (21:02)
[2024-10-15] MEDS: TRAZODONE 50 MG TABLET PO SCH (21:02)
[2024-10-15] MEDS: LISINOPRIL 40 MG PO SCH (21:02)
--- NOTE | 2024-10-15 22:05 | P.CONS ---
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 Patient is undergone left shoulder surgery. Pain is present. Left arm in a sling. No nausea vomiting. No chest pain. Reclining in bed. Did tolerate some meal. Chronic stable medical condition include COPD, CAD, diabetes GERD hard of hearing hypertension hyperlipidemia kidney disease hypothyroid, IBS. Does not use CPAP. Urine incontinence. Patient had diarrhea yesterday from her IBS.'s abdominal discomfort. Review of systems: GEN.: Tired EYES: None HEENT: None NECK: None RESPIRATORY: None CARDIOVASCULAR: None GASTROINTESTINAL: [As above GENITOURINARY: Incontinence e MUSCULOSKELETAL: Joint pains LYMPHATICS: None HEMATOLOGICAL: None PSYCHIATRY: None NEUROLOGICAL: None Social history: Smoked for 53 years. 1/2 packs a day. Stopped in 2023. No alcohol. Lives alone Physical examination: VITAL SIGNS: 98.5, 58, 18, 141 x 67, 94% on 2 L GENERAL: BMI 25.7, reclining in bed. EYES: Pupils equal. Conjunctiva soila l. HEENT: External appearance of nose and ears normal, oral cavity grossly normal. NECK: JVD not raised; masses not palpable. HEART: First and second heart sounds are normal; no edema. LUNGS: Respiratory rate normal; decreased breath sounds. ABDOMEN: Soft, nontender, liver spleen not palpable, no masses palpable. PSYCH: Alert and oriented x3; mood and affect soila l. MUSCULOSKELETAL:No Clubbing/cyanosis;muscles-grossly intact. Left arm in a sli ng NEUROLOGICAL: Cranial nerves grossly intact; no facial asymmetry, power and sensation grossly intact. LYMPHATICS: No lymph nodes palpable in the axilla and neck INVESTIGATIONS, reviewed in the clinical context: White count 10.1 hemoglobin 10.8 platelets 383 sodium 142 potassium 4.2 BUN 24 creatinine 1.06 Assessment plan: -Left reverse total shoulder arthroplasty Pain management -Depression Celexa 40 mg a day -Hyperlipidemia Zetia, fenofibrate -Hypothyroid Levothyroxine -Essential hypertension Lisinopril. Nifedipine. Toprol-XL. -Mild cognitive impairment Aricept -GERD Prilosec -Chronic kidney disease stage II/III. Likely nephrosclerosis -Anemia of chronic kidney disease -COPD in a prior smoker Spiriva. -No code Care was discussed with patient. Questions answered. Patient is requested to take her medications from home. This will be done through pharmacy. Thank you Dr. Riojas Past Medical History Past Medical History: Coronary Artery Disease (CAD), Chest Pain / Angina, COPD, Diabetes Mellitus, GERD/Reflux, Hearing Disorder / Deafness, Hyperlipidemia, Hypertension, Renal Disease, Skin Disorder, Sleep Apnea/CPAP/BIPAP, Thyroid Disorder Additional Past Medical History / Comment(s): Current Seborrheic dermatitis/psoriasis and foliculitis on scalp- pt states she has wounds d/t scratching her scalp.seasonal allergies, IBS, ckd, doesn't use cpap. Urinary incontinence. "Abnormal heartbeat" "Iron a lttle low.' "Memory Imbalance." Type II diabetic NIDDM. Arthritis. "They nuked my thyroid. " "I have Graves disease." History of Any Multi-Drug Resistant Organisms: None Reported Past Surgical History: Appendectomy, Back Surgery, Cholecystectomy, Coronary Bypass/CABG, Tonsillectomy, Tubal Ligation Additional Past Surgical History / Comment(s): triple bypass at age 44. Colonoscopy. Past Anesthesia/Blood Transfusion Reactions: No Reported Reaction, Postoperative Nausea & Vomiting (PONV) Additional Past Anesthesia/Blood Transfusion Reaction / Comm: No hx of blood transfusions to date. Past Psychological History: Anxiety, Depression Smoking Status: Former smoker Past Alcohol Use History: None Reported Additional Past Alcohol Use History / Comment(s): quit january 2024, started smoking at age 18years of age, smoked 1.5ppd Past Drug Use History: None Reported - Past Family History Father Family Medical History: No Reported History Medications and Allergies Home Medications Medication Instructions Recorded Confirmed Type Acetaminophen [Tylenol Extra 1 - 2 tab PO Q8H PRN 07/27/24 10/11/24 History Strength] Aspirin [Adult Low Dose Aspirin EC] 81 mg PO QAM 07/27/24 10/11/24 History Chlorthalidone 25 mg PO QAM 07/27/24 10/11/24 History Citalopram Hydrobromide 40 mg PO QAM 07/27/24 10/11/24 History [Citalopram HBr] Donepezil HCl [Aricept] 10 mg PO QAM 07/27/24 10/11/24 History Ezetimibe [Zetia] 10 mg PO QAM 07/27/24 10/11/24 History Fenofibrate Nanocrystallized 145 mg PO QAM 07/27/24 10/11/24 History [Fenofibrate] Levothyroxine Sodium 125 mcg PO QAM 07/27/24 10/11/24 History Magnesium(Unk) 1 tab PO QAM 07/27/24 10/11/24 History Metoprolol Succinate (ER) [Toprol 50 mg PO QAM 07/27/24 10/11/24 History Xl] Multivit-Min/Iron/Folic/Lutein 1 each PO QAM 07/27/24 10/11/24 History [Centrum Silver Women Tablet] Omeprazole [PriLOSEC] 20 mg PO AC-BRKFST 07/27/24 10/11/24 History Potassium Gluconate(Unk) 1 tab PO QAM 07/27/24 10/11/24 History Tiotropium 18 Mcg/Puff [Spiriva] 1 puff INHALATION HS 07/27/24 10/11/24 History lisinopriL 40 mg PO HS 07/27/24 10/11/24 History metFORMIN HCL ER [Glucophage XR] 500 mg PO 1700 07/27/24 10/11/24 History traZODone HCL [Desyrel] 50 mg PO HS 07/27/24 10/11/24 History Cephalexin [Keflex] 500 mg PO Q12HR 10/11/24 10/11/24 History Fexofenadine HCl [Orin Allergy] 180 mg PO QAM PRN 10/11/24 10/11/24 History Fluocinonide [Lidex 0.05%] 1 applic TOPICAL 10/11/24 10/11/24 History Iron Glycinate(Unknown Dose) 2 tab PO QAM 10/11/24 10/11/24 History NIFEdipine [Adalat CC] 30 mg PO QAM 10/11/24 10/11/24 History Allergies Allergy/AdvReac Type Severity Reaction Status Date / Time hydrocodone [From [place]] AdvReac Nausea & Verified 10/15/24 07:06 Vomiting Sulfa (Sulfonamide AdvReac Anaphylaxis Verified 10/15/24 06:21 Antibiotics) Physical Exam Vitals: Vital Signs Temp Pulse Resp BP BP Pulse Ox 10/15/24 19:47 98.5 F 58 L 18 141/67 94 L 10/15/24 13:35 74 175/79 97 10/15/24 13:20 52 L 136/71 98 10/15/24 13:16 97.6 F 62 18 150/54 99 10/15/24 13:05 55 L 151/76 99 10/15/24 12:50 69 164/79 98 10/15/24 12:35 66 144/71 98 10/15/24 12:22 62 121/67 96 10/15/24 12:05 62 149/73 97 10/15/24 11:50 55 L 153/69 90 L 10/15/24 11:36 97.6 F 57 L 18 139/63 94 L 10/15/24 11:00 67 17 155/70 97 10/15/24 10:25 63 15 145/67 97 10/15/24 10:10 63 17 156/67 93 L 10/15/24 09:55 72 15 146/65 98 10/15/24 09:40 97.2 F L 75 16 145/65 95 10/15/24 07:40 45 L 16 134/64 97 10/15/24 06:35 97.3 F L 44 L 18 156/74 98 Intake and Output 10/15/24 10/15/24 10/15/24 06:59 14:59 22:59 Intake Total 1451 Output Total 300 Balance 1151 Intake: IV 1451 Output: Urine 200 Estimated Blood Loss 100 Other: Voiding Method Toilet Weight 76.7 kg 76.7 kg Results CBC & Chem 7: 10/15/24 11:39 10/15/24 07:00 Labs: Abnormal Lab Results - Last 24 Hours (Table) 10/15/24 10/15/24 10/15/24 Range/Units 06:59 07:00 10:00 RBC 3.63 L (3.80-5.40) m/uL Hgb 10.8 L (11.4-16.0) gm/dL Hct 33.4 L (34.0-46.0) % Neutrophils # (1.3-7.7) k/uL Lymphocytes # (1.0-4.8) k/uL BUN 24 H (7-17) mg/dL Creatinine 1.06 H (0.52-1.04) mg/dL POC Glucose (mg/dL) 148 H (70-110) mg/dL 10/15/24 10/15/24 10/15/24 Range/Units 11:39 11:42 16:40 RBC 3.67 L (3.80-5.40) m/uL Hgb 10.8 L (11.4-16.0) gm/dL Hct (34.0-46.0) % Neutrophils # 9.0 H (1.3-7.7) k/uL Lymphocytes # 0.8 L (1.0-4.8) k/uL BUN (7-17) mg/dL Creatinine (0.52-1.04) mg/dL POC Glucose (mg/dL) 164 H 228 H (70-110) mg/dL 10/15/24 Range/Units 20:48 RBC (3.80-5.40) m/uL Hgb (11.4-16.0) gm/dL Hct (34.0-46.0) % Neutrophils # (1.3-7.7) k/uL Lymphocytes # (1.0-4.8) k/uL BUN (7-17) mg/dL Creatinine (0.52-1.04) mg/dL POC Glucose (mg/dL) 156 H (70-110) mg/dL
[2024-10-16 06:28] LABS: Glucose,Whole Blood 104 mg/dL (70-110)
[2024-10-16] MEDS: LEVOTHYROXINE 125 MCG TAB PO SCH (06:46)
[2024-10-16] MEDS: ONDANSETRON 4 MG/2 ML VIAL IVP PRN (08:10)
--- NOTE | 2024-10-16 08:53 | P.PN ---
Subjective Progress Note Date: 10/16/24 Principal diagnosis: Left shoulder rotator cuff arthropathy Patient stable at bedside this morning. Postoperative dressing in place over left shoulder and sling in place to left upper extremity. Patient says she has been bit nauseous since surgery yesterday. She says she has been urinating okay. Patient says she has had a little bit to eat as well. Patient says she is hoping go to rehab upon discharge from the hospital. Objective - Vital Signs Vital signs: Vital Signs Temp 98.0 F 10/16/24 07:01 Pulse 64 10/16/24 07:01 Resp 17 10/16/24 07:01 BP 127/72 10/16/24 07:01 Pulse Ox 91 L 10/16/24 07:01 FiO2 Intake & Output 10/15/24 10/16/24 10/16/24 18:59 06:59 18:59 Intake Total 1451 360 Output Total 300 Balance 1151 360 Weight 76.7 kg Intake: IV 1451 Oral 360 Output: Urine 200 Estimated Blood Loss 100 Other: Voiding Method Toilet # Voids 2 - Exam Left shoulder: Incision is clean, dry, and intact. Sling present to left upper extremity. The bulky dressing is in good condition. There is minimal soft tissue swelling and ecchymosis surrounding the medial and lateral aspects of the incision. Calf is soft, no tenderness with palpation. Plantar flexion, dorsiflexion, EHL, FHL are intact. Sensory exam to light touch throughout the extremity is intact, dorsal pedis pulses 2+. - Labs CBC & Chem 7: 10/15/24 11:39 10/15/24 07:00 Labs: Abnormal Lab Results - Last 24 Hours (Table) 10/15/24 10/15/24 10/15/24 Range/Units 10:00 11:39 11:42 RBC 3.67 L (3.80-5.40) m/uL Hgb 10.8 L (11.4-16.0) gm/dL Neutrophils # 9.0 H (1.3-7.7) k/uL Lymphocytes # 0.8 L (1.0-4.8) k/uL POC Glucose (mg/dL) 148 H 164 H (70-110) mg/dL 10/15/24 10/15/24 Range/Units 16:40 20:48 RBC (3.80-5.40) m/uL Hgb (11.4-16.0) gm/dL Neutrophils # (1.3-7.7) k/uL Lymphocytes # (1.0-4.8) k/uL POC Glucose (mg/dL) 228 H 156 H (70-110) mg/dL Assessment and Plan Assessment: 1. Left shoulder rotator cuff arthropathy Postop day 1 status post: Reverse left total shoulder arthroplasty Plan: 1. Left shoulder rotator cuff arthropathy -reverse left total shoulder arthroplasty performed yesterday, 10/15/2024. Patient stable at bedside this morning. Postoperative dressing in place over left shoulder and sling in place to left upper extremity. Case management working on rehab placement. Pain medication is helping a little bit. Patient to be nonweightbearing to the left upper extremity. Weightbearing as tolerated bilateral lower extremities. We will continue to follow patient during stay in hospital. Appreciate PT/OT evaluation 2. Appreciate medical management 3. Pain management -Friend; Tylenol with codeine 4. DVT prophylaxis - aspirin 5. GI prophylaxis - senna 6. PT/OT -nonweightbearing left upper extremity. Maintain in sling. Okay to perform gentle range of motion exercises of left elbow and left wrist. 7. Encourage incentive spirometer use 8. Discharge planning -pending Time with Patient: Less than 30
[2024-10-16] MEDS: CITALOPRAM HYDROBROMIDE 20 MG TAB PO SCH (09:47)
[2024-10-16] MEDS: CHLORTHALIDONE 25 MG TAB PO SCH (09:47)
[2024-10-16] MEDS: NIFEDIPINE 30 MG PO SCH (09:48)
[2024-10-16] MEDS: FENOFIBRATE NANOCRYSTALLIZED 145 MG PO SCH (09:48)
[2024-10-16] MEDS: METOPROLOL SUCCINATE (ER) 50 MG TAB.ER.24H PO SCH (09:48)
[2024-10-16] MEDS: EZETIMIBE 10 MG TAB PO SCH (09:48)
[2024-10-16 11:48] LABS: Glucose,Whole Blood 132 mg/dL (70-110)
--- NOTE | 2024-10-16 14:29 | P.PN ---
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 Patient is undergone left shoulder surgery. Pain is present. Left arm in a sling. No nausea vomiting. No chest pain. Reclining in bed. Did tolerate some meal. Chronic stable medical condition include COPD, CAD, diabetes GERD hard of hearing hypertension hyperlipidemia kidney disease hypothyroid, IBS. Does not u se CPAP. Urine incontinence. Patient had diarrhea yesterday from her IBS.'s abdominal discomfort. October 16: Up in recliner. Tolerating diet. Pain present. Looking at possible rehab. Active Medications Acetaminophen/Codeine Phosphate (Acetaminophen-Codeine 300-30mg Tab) 1 each PO Q6HR PRN PRN Reason: Pain Scale 4 to 5 Stop: 11/14/24 09:32 Last Admin: 10/16/24 09:55 Dose: 1 each Hydrocodone Bitart/Acetaminophen (Hydrocodone/Apap 5-325mg 1 Each Tab) 1 each PO Q6HR PRN PRN Reason: Pain Scale 6 To 8 Stop: 11/14/24 09:32 Aspirin (Aspirin 81 Mg) 81 mg PO BID DALJIT Stop: 11/14/24 20:59 Last Admin: 10/16/24 09:47 Dose: 81 mg Dextrose/Water (Dextrose 50% Syringe 50 Ml) 25 ml IVP PER PROTOCOL PRN; Protocol PRN Reason: Hypoglycemia Dextrose/Water (Dextrose 50% Syringe 50 Ml) 50 ml IVP PER PROTOCOL PRN; Protocol PRN Reason: Hypoglycemia Hydromorphone HCl (Hydromorphone 0.5 Mg/0.5 Ml Syringe) 0.5 mg IVP Q3HR PRN PRN Reason: Pain Scale 9 to 10 Stop: 11/14/24 09:32 Last Admin: 10/16/24 04:15 Dose: 0.5 mg Lactated Ringer's (Lactated Ringers) 1,000 mls @ 20 mls/hr IV .Q24H DALJIT Stop: 11/14/24 06:07 Last Admin: 10/16/24 06:33 Dose: Not Given Insulin Aspart (Insulin Aspart (Novolog) 100 Unit/Ml Vial) 0 unit SQ ACHS DALJIT; Protocol Last Admin: 10/16/24 11:59 Dose: Not Given Chlorthalidone 25 Mg (Tab) 1 each PO QAM DALJIT Last Admin: 10/16/24 09:47 Dose: 1 each Citalopram Hydrobromide 20 Mg Tab 2 each PO QAM [facility] Last Admin: 10/16/24 09:47 Dose: 2 each Donepezil 10 Mg Tab 1 each PO HS [facility] Last Admin: 10/15/24 21:02 Dose: 1 each [facility]imibe 10 Mg Tab [facility] Last Admin: 10/16/24 09:48 Dose: 1 each Fenofibrate Nanocrystallized [ Fenofibrate] 145 Mg Tablet 145 mg PO [facility] Last Admin: 10/16/24 09:48 Dose: 145 mg Levothyroxine 125 (Mcg Tab) 125 each PO MoTuWeThFrSa [facility] Last Admin: 10/16/24 06:46 Dose: 125 each Lisinopril [ Lisinopril] 40 Mg Tablet 40 mg PO [facility] Last Admin: 10/15/24 21:02 Dose: 40 mg Metformin Hcl Er 500 (Mg Tab.Er.24h) 500 mg PO 1700 [facility] Last Admin: 10/15/24 17:37 Dose: 500 mg Metoprolol Succinate (Er) 50 Mg Tab.Er. 24h 1 [facility] [place] Last Admin: 10/16/24 09:48 Dose: 1 each Nifedipine [Adalat (Cc] 30 Mg Tablet.Er) 30 mg PO [facility] Last Admin: 10/16/24 09:48 Dose: 30 mg Omeprazole 20 Mg (Capsule.Dr) 20 mg PO AC-BRKFST [facility] Last Admin: 10/16/24 09:47 Dose: 20 mg Trazodone 50 Mg (Tablet) 1 each PO [facility] Last Admin: 10/15/24 21:02 Dose: 1 each Ondansetron HCl (Ondansetron 4 Mg/2 Ml Vial) 4 mg IVP DAILY PRN PRN Reason: Nausea And Vomiting Stop: 11/14/24 09:32 Last Admin: 10/16/24 08:10 Dose: 4 mg Senna/Docusate Sodium (Sennosides-Docusate Sodium 1 Each Tab) 2 each PO HS PRN PRN Reason: Constipation Stop: 11/14/24 09:32 Social history: Smoked for 53 years. 1/2 packs a day. Stopped in 2023. No alcohol. Lives alone Physical examination: VITAL SIGNS: 98, 64, 17, 127 x 72, 91% room air GENERAL: BMI 25.7, in a recliner EYES: Pupils equal. Conjunctiva soila l. HEENT: External appearance of nose and ears normal, oral cavity grossly normal. NECK: JVD not raised; masses not palpable. HEART: First and second heart sounds are normal; no edema. LUNGS: Respiratory rate normal; decreased breath sounds. ABDOMEN: Soft, nontender, liver spleen not palpable, no masses palpable. PSYCH: Alert and oriented x3; mood and affect soila l. MUSCULOSKELETAL:No Clubbing/cyanosis;muscles-grossly intact. Left arm in a sling INVESTIGATIONS, reviewed in the clinical context: White count 10.1 hemoglobin 10.8 platelets 383 sodium 142 potassium 4.2 BUN 24 creatinine 1.06 Assessment plan: -Left reverse total shoulder arthroplasty Pain management. Left arm in a sling -Depression Celexa 40 mg a day -Hyperlipidemia Zetia, fenofibrate -Hypothyroid Levothyroxine -Essential hypertension Lisinopril. Nifedipine. Toprol-XL. -Mild cognitive impairment Aricept -GERD Prilosec -Chronic kidney disease stage II/III. Likely nephrosclerosis -Anemia of chronic kidney disease -COPD in a prior smoker Spiriva. -No code Discussed with patient. Possibly may go to rehab. Thank you Dr. Riojas Past Medical History Past Medical History: Coronary Artery Disease (CAD), Chest Pain / Angina, COPD, Diabetes Mellitus, GERD/Reflux, Hearing Disorder / Deafness, Hyperlipidemia, Hypertension, Renal Disease, Skin Disorder, Sleep Apnea/CPAP/BIPAP, Thyroid Disorder Additional Past Medical History / Comment(s): Current Seborrheic derm atitis/psoriasis and foliculitis on scalp- pt states she has wounds d/t scratching her scalp.seasonal allergies, IBS, ckd, doesn't use cpap. Urinary incontinence. "Abnormal heartbeat" "Iron a lttle low.' "Memory Imbalance." Type II diabetic NIDDM. Arthritis. "They nuked my thyroid. " "I have Graves disease." History of Any Multi-Drug Resistant Organisms: None Reported Past Surgical History: Appendectomy, Back Surgery, Cholecystectomy, Coronary Bypass/CABG, Tonsillectomy, Tubal Ligation Additional Past Surgical History / Comment(s): triple bypass at age 44. Colonoscopy. Past Anesthesia/Blood Transfusion Reactions: No Reported Reaction, Postoperative Nausea & Vomiting (PONV) Additional Past Anesthesia/Blood Transfusion Reaction / Comm: No hx of blood transfusions to date. Past Psychological History: Anxiety, Depression Smoking Status: Former smoker Past Alcohol Use History: None Reported Additional Past Alcohol Use History / Comment(s): quit january 2024, started smoking at age 18years of age, smoked 1.5ppd Past Drug Use History: None Reported
[2024-10-16 16:49] LABS: Glucose,Whole Blood 130 mg/dL (70-110)
[2024-10-16 20:42] LABS: Glucose,Whole Blood 149 mg/dL (70-110)
[2024-10-17 06:40] LABS: Glucose,Whole Blood 106 mg/dL (70-110)
--- NOTE | 2024-10-17 10:08 | P.PN ---
Subjective Progress Note Date: 10/17/24 Principal diagnosis: Left shoulder rotator cuff arthropathy Patient stable at bedside this morning. Postoperative dressing in place over left shoulder and sling in place to left upper extremity. Patient says she is feeling less naueosu today.. She says she has been urinating okay. Patient says she has had a little bit to eat as well. Patient says she is hoping go to rehab upon discharge from the hospital. Objective - Vital Signs Vital signs: Vital Signs Temp 98.6 F 10/17/24 06:55 Pulse 63 10/17/24 09:09 Resp 17 10/17/24 09:09 BP 134/64 10/17/24 06:55 Pulse Ox 90 L 10/17/24 06:55 FiO2 Intake & Output 10/16/24 10/17/24 10/17/24 18:59 06:59 18:59 Intake Total 480 Balance 480 Intake: Oral 480 Other: Voiding Method Toilet Toilet Toilet # Voids 2 1 - Exam Left shoulder: Incision is clean, dry, and intact. Sling present to left upper extremity. The bulky dressing is in good condition. There is minimal soft tissue swelling and ecchymosis surrounding the medial and lateral aspects of the incision. Calf is soft, no tenderness with palpation. Plantar flexion, dorsiflexion, EHL, FHL are intact. Sensory exam to light touch throughout the extremity is intact, dorsal pedis pulses 2+. - Labs CBC & Chem 7: 10/15/24 11:39 10/15/24 07:00 Labs: Abnormal Lab Results - Last 24 Hours (Table) 10/15/24 10/16/24 10/16/24 Range/Units 11:39 11:47 16:47 POC Glucose (mg/dL) 132 H 130 H (70-110) mg/dL Hemoglobin A1c 6.2 H (<=6.0) % 10/16/24 Range/Units 20:39 POC Glucose (mg/dL) 149 H (70-110) mg/dL Hemoglobin A1c (<=6.0) % Assessment and Plan Assessment: 1. Left shoulder rotator cuff arthropathy Postop day 2 status post: Reverse left total shoulder arthroplasty Plan: 1. Left shoulder rotator cuff arthropathy -reverse left total shoulder arthroplasty performed yesterday, 10/15/2024. Patient stable at bedside this morning. Postoperative dressing in place over left shoulder and sling in place to left upper extremity. Case management working on rehab placement. Pain medication is helping a little bit. Patient to be nonweightbearing to the left upper extremity. Weightbearing as tolerated bilateral lower extremities. We will continue to follow patient during stay in hospital. Pt/OT recs. BHARGAVI tmrw 2. Appreciate medical management 3. Pain management -[place]; Tylenol with codeine 4. DVT prophylaxis - aspirin 5. GI prophylaxis - senna 6. PT/OT -nonweightbearing left upper extremity. Maintain in sling. Okay to perform gentle range of motion exercises of left elbow and left wrist. 7. Encourage incentive spirometer use 8. Discharge planning - plan for BHARGAVI tmrw Time with Patient: Less than 30
[2024-10-17 11:53] LABS: Glucose,Whole Blood 181 mg/dL (70-110)
--- NOTE | 2024-10-17 16:21 | P.PN ---
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 Patient is undergone left shoulder surgery. Pain is present. Left arm in a sling. No nausea vomiting. No chest pain. Reclining in bed. Did tolerate some meal. Chronic stable medical condition include COPD, CAD, diabetes GERD hard of hearing hypertension hyperlipidemia kidney disease hypothyroid, IBS. Does not u se CPAP. Urine incontinence. Patient had diarrhea yesterday from her IBS.'s abdominal discomfort. October 16: Up in recliner. Tolerating diet. Pain present. Looking at possible rehab. October 17: Eating fair. In bed. Looking to go to rehab. Some pain is present. No other issues. Active Medications Acetaminophen/Codeine Phosphate (Acetaminophen-Codeine 300-30mg Tab) 1 each PO Q6HR PRN PRN Reason: Pain Scale 4 to 5 Stop: 11/14/24 09:32 Last Admin: 10/16/24 09:55 Dose: 1 each Hydrocodone Bitart/Acetaminophen (Hydrocodone/Apap 5-325mg 1 Each Tab) 1 each PO Q6HR PRN PRN Reason: Pain Scale 6 To 8 Stop: 11/14/24 09:32 Aspirin (Aspirin 81 Mg) 81 mg PO BID [facility] Stop: 11/14/24 20:59 Last Admin: 10/16/24 09:47 Dose: 81 mg Dextrose/Water (Dextrose 50% Syringe 50 Ml) 25 ml IVP PER PROTOCOL PRN; Protocol PRN Reason: Hypoglycemia Dextrose/Water (Dextrose 50% Syringe 50 Ml) 50 ml IVP PER PROTOCOL PRN; Protocol PRN Reason: Hypoglycemia Hydromorphone HCl (Hydromorphone 0.5 Mg/0.5 Ml Syringe) 0.5 mg IVP Q3HR PRN PRN Reason: Pain Scale 9 to 10 Stop: 11/14/24 09:32 Last Admin: 10/16/24 04:15 Dose: 0.5 mg Lactated Ringer's (Lactated Ringers) 1,000 mls @ 20 mls/hr IV .Q24H DALJIT Stop: 11/14/24 06:07 Last Admin: 10/16/24 06:33 Dose: Not Given Insulin Aspart (Insulin Aspart (Novolog) 100 Unit/Ml Vial) 0 unit SQ ACHS DALJIT; Protocol Last Admin: 10/16/24 11:59 Dose: Not Given Chlorthalidone 25 Mg (Tab) 1 each PO QAM [facility] Last Admin: 10/16/24 09:47 Dose: 1 each Citalopram Hydrobromide 20 Mg Tab 2 each PO QAM [facility] Last Admin: 10/16/24 09:47 Dose: 2 each Donepezil 10 Mg Tab 1 each PO HS [facility] Last Admin: 10/15/24 21:02 Dose: 1 each Ezetimibe 10 Mg Tab 1 each PO QAM [facility] Last Admin: 10/16/24 09:48 Dose: 1 each Fenofibrate Nanocrystallized [ Fenofibrate] 145 Mg Tablet 145 mg PO [facility] Last Admin: 10/16/24 09:48 Dose: 145 mg Levothyroxine 125 (Mcg Tab) 125 each PO MoTuWeThFrSa [facility] Last Admin: 10/16/24 06:46 Dose: 125 each Lisinopril [ Lisinopril] 40 Mg Tablet 40 mg PO [facility] Last Admin: 10/15/24 21:02 Dose: 40 mg Metformin Hcl Er 500 (Mg Tab.Er.24h) 500 mg PO 1700 [facility] Last Admin: 10/15/24 17:37 Dose: 500 mg Metoprolol Succinate (Er) 50 Mg Tab.Er. 24h 1 each PO QAM [facility] Last Admin: 10/16/24 09:48 Dose: 1 each Nifedipine [Adalat (Cc] 30 Mg Tablet.Er) 30 mg PO [facility] Last Admin: 10/16/24 09:48 Dose: 30 mg Omeprazole 20 Mg (Capsule.Dr) 20 mg PO AC-BRKFST [facility] Last Admin: 10/16/24 09:47 Dose: 20 mg Trazodone 50 Mg (Tablet) 1 each PO HS [facility] Last Admin: 10/15/24 21:02 Dose: 1 each Ondansetron HCl (Ondansetron 4 Mg/2 Ml Vial) 4 mg IVP DAILY PRN PRN Reason: Nausea And Vomiting Stop: 11/14/24 09:32 Last Admin: 10/16/24 08:10 Dose: 4 mg Senna/Docusate Sodium (Sennosides-Docusate Sodium 1 Each Tab) 2 each PO HS PRN PRN Reason: Constipation Stop: 11/14/24 09:32 Social history: Smoked for 53 years. 1/2 packs a day. Stopped in 2023. No alcohol. Lives alone Physical examination: VITAL SIGNS: 98.1, 52, 17, 116 x 54, 91% room air GENERAL: BMI 25.7, reclining in bed EYES: Pupils equal. Conjunctiva soila l. HEENT: External appearance of nose and ears normal, oral cavity grossly normal. NECK: JVD not raised; masses not palpable. HEART: First and second heart sounds are normal; no edema. LUNGS: Respiratory rate normal; decreased breath sounds. ABDOMEN: Soft, nontender, liver spleen not palpable, no masses palpable. PSYCH: Alert and oriented x3; mood and affect soila l. MUSCULOSKELETAL:No Clubbing/cyanosis;muscles-grossly intact. Left arm in a sling INVESTIGATIONS, reviewed in the clinical context: White count 10.1 hemoglobin 10.8 platelets 383 sodium 142 potassium 4.2 BUN 24 creatinine 1.06 Assessment plan: -Left reverse total shoulder arthroplasty Pain management. Left arm in a sling -Depression Celexa 40 mg a day -Hyperlipidemia Zetia, fenofibrate -Hypothyroid Levothyroxine -Essential hypertension Lisinopril. Nifedipine. Toprol-XL. -Mild cognitive impairment Aricept -GERD Prilosec -Chronic kidney disease stage II/III. Likely nephrosclerosis -Anemia of chronic kidney disease -COPD in a prior smoker Spiriva. -Disposition: Pending rehab -No code Discussed. Pending rehab. Thank you Dr. Riojas Past Medical History Past Medical History: Coronary Artery Disease (CAD), Chest Pain / Angina, COPD, Diabetes Mellitus, GERD/Reflux, Hearing Disorder / Deafness, Hyperlipidemia, Hypertension, Renal Disease, Skin Disorder, Sleep Apnea/CPAP/BIPAP, Thyroid Disorder Additional Past Medical History / Comment(s): Current Seborrheic dermatitis/psoriasis and foliculitis on scalp- pt states she has wounds d/t scratching her scalp.seasonal allergies, IBS, ckd, doesn't use cpap. Urinary incontinence. "Abnormal heartbeat" "Iron a lttle low.' "Memory Imbalance." Type II diabetic NIDDM. Arthritis. "They nuked my thyroid. " "I have Graves disease." History of Any Multi-Drug Resistant Organisms: None Reported Past Surgical History: Appendectomy, Back Surgery, Cholecystectomy, Coronary Bypass/CABG, Tonsillectomy, Tubal Ligation Additional Past Surgical History / Comment(s): triple bypass at age 44. Colonoscopy. Past Anesthesia/Blood Transfusion Reactions: No Reported Reaction, Postoperative Nausea & Vomiting (PONV) Additional Past Anesthesia/Blood Transfusion Reaction / Comm: No hx of blood tra nsfusions to date. Past Psychological History: Anxiety, Depression Smoking Status: Former smoker Past Alcohol Use History: None Reported Additional Past Alcohol Use History / Comment(s): quit january 2024, started smoking at age 18years of age, smoked 1.5ppd Past Drug Use History: None Reported
[2024-10-17 16:37] LABS: Glucose,Whole Blood 137 mg/dL (70-110)
[2024-10-17 20:41] LABS: Glucose,Whole Blood 112 mg/dL (70-110)
[2024-10-18 06:07] LABS: Glucose,Whole Blood 99 mg/dL (70-110)
[2024-10-18 07:56] VITALS: RESP 16
[2024-10-18 11:57] LABS: Glucose,Whole Blood 130 mg/dL (70-110)
--- NOTE | 2024-10-18 12:36 | P.PN ---
Subjective Progress Note Date: 10/18/24 Principal diagnosis: Left shoulder rotator cuff arthropathy Patient stable at bedside this morning. Postoperative dressing in place over left shoulder and sling in place to left upper extremity. Patient says she is feeling less naueosu today. She says she has been urinating okay. Patient says she has had a little bit to eat as well. Patient says she is hoping go to rehab upon discharge from the hospital. Objective - Vital Signs Vital signs: Vital Signs Temp 98.1 F 10/18/24 07:00 Pulse 54 L 10/18/24 12:20 Resp 16 10/18/24 07:00 BP 149/61 10/18/24 12:20 Pulse Ox 94 L 10/18/24 12:20 FiO2 Intake & Output 10/17/24 10/18/24 10/18/24 18:59 06:59 18:59 Other: Voiding Method Toilet Toilet # Voids 3 2 - Exam Left shoulder: Incision is clean, dry, and intact. Sling present to left upper extremity. The bulky dressing is in good condition. Dressing was removed at bedside this morning. Incision appears to be clean, dry, intact. Steri-Strips present across incision. Negative for any drainage. Some ecchymosis present along the axilla extending into the mid upper arm. There is minimal soft tissue swelling and ecchymosis surrounding the medial and lateral aspects of the incision. Calf is soft, no tenderness with palpation. Plantar flexion, dorsiflexion, EHL, FHL are intact. Sensory exam to light touch throughout the extremity is intact, dorsal pedis pulses 2+. - Labs CBC & Chem 7: 10/15/24 11:39 10/15/24 07:00 Labs: Abnormal Lab Results - Last 24 Hours (Table) 10/17/24 10/17/24 10/18/24 Range/Units 16:36 20:39 11:55 POC Glucose (mg/dL) 137 H 112 H 130 H (70-110) mg/dL Assessment and Plan Assessment: 1. Left shoulder rotator cuff arthropathy Postop day 3 status post: Reverse left total shoulder arthroplasty Plan: 1. Left shoulder rotator cuff arthropathy -reverse left total shoulder arthroplasty performed 10/15/2024. Patient stable at bedside this morning. dressing in place over left shoulder and sling in place to left upper extremity. Case management working on rehab placement. Pain medication is helping a little bit. Patient to be nonweightbearing to the left upper extremity. Weightbearing as tolerated bilateral lower extremities. We will continue to follow patient during stay in hospital. Pt/OT recs. Discharge to rehab today 2. Appreciate medical management 3. Pain management -[place]; Tylenol with codeine 4. DVT prophylaxis - aspirin 5. GI prophylaxis - senna 6. PT/OT -nonweightbearing left upper extremity. Maintain in sling. Okay to perform gentle range of motion exercises of left elbow and left wrist. 7. Encourage incentive spirometer use 8. Discharge planning -discharge to rehab today Time with Patient: Less than 30
--- NOTE | 2024-10-18 12:39 | P.DS ---
Providers Date of admission: 10/16/24 04:30 Expected date of discharge: 10/18/24 Attending physician: Gutierrez Riojas Consults: 10/15/24 09:37 Consult Physician Routine Consulting Provider: Kenton Thompson Reason/Comments: Medical Management Do you want consulting provider notified?: Yes Primary care physician: Yanira Jimenez MD Hospital Course: Date of admission: 10/15/2024 Date of discharge: 10/18/2024 Admission diagnosis: Left shoulder rotator cuff arthropathy Discharge diagnosis: Same Attending physician: Dr. Riojas Surgical procedures: Reverse left total shoulder arthroplasty Brief history: Patient is a 74-year-old female with a history of left shoulder rotator cuff arthropathy. At this point patient has failed conservative treatment measures and has opted to proceed with a elective reverse left total shoulder arthroplasty. Hospital course: Details of patient's surgery can be found in operative report. Patient tolerated the procedure well and was subsequently transported to orthopedic floor. Patient's orthopeidc and medical care was provided daily. Patient had daily laboratory tests performed for evaluation of overall blood counts. Patient had daily physical therapy to include strengthening range of motion as well as education with walker ambulation. Patient was treated with aspirin for their postoperative DVT prophylaxis during their inpatient stay. Patient was noted to have a relatively uneventful postoperative course. Patient reported satisfactory pain control with oral pain medications by postoperative day 3. Patient showed satisfactory progress with physical therapy. Patient moved steadily through the program and had no difficulty meeting the goals by postoperative day 3. Given patient's otherwise satisfactory course and having met physical therapy goals, plan is to discharge patient to rehab on postoperative day 3. Discharge condition/disposition: Patient will be discharged to rehab in stable condition. Discharge medications: Instructions are given on resumption of patient's normal daily medications per primary care recommendation, in addition patient will be prescribed Tylenol with codeine; senna; aspirin 81 mg twice daily x 30 days. Orthopedic Discharge Instructions: 1. Wound care and infection precautions, keep incision dry and covered while showering, no lotions, creams, moisturizers. No soaking, pools, hot tubs. Do not scrub over incision. 2. Nonweightbearing left upper extremity until follow-up. 3. Ice when necessary. Do not exceed 20 minutes per hour with ice pack. 4. Utilize sling to left upper extremity until seen at first follow up appointment. 5. Pain meds and anticoagulants per prescription. 6. Pain medication has potential to cause constipation. Increase oral fluid and fiber intake. Contact primary care provider if you have not had a bowel movement within 48 hours after discharge. 7. No anti-inflammatory medication until discussed at first post operative visit, this including Motrin, Aleve, Mobic, Diclofenac. 8. Follow up in office at 2 weeks postop with Weston Poon PA-C / Niles Mclaughlin PA-C 9. Follow up with your primary care doctor 7-10 days after discharge. 10. Contact [facility] with any questions, . Keep incision clean, dry, intact. While showering, cover steri-strips with Saran wrap. Keep steri-strips on until follow-up appointment in office in 2 wee Assessment: Left shoulder rotator cuff arthropathy Procedures: Reverse left total shoulder arthroplasty Patient Condition at Discharge: Good Plan - Discharge Summary Discharge Rx Participant: No New Discharge Prescriptions: New Aspirin [Adult Low Dose Aspirin EC] 81 mg PO BID #60 tab Acetaminophen-Codeine 300-30mg [Tylenol w/codeine #3] 1 tab PO Q6H PRN #28 tablet PRN Reason: Pain INSULIN ASPART (NovoLOG) [NovoLOG (formulary)] 0 unit SQ ACHS each Sennosides/Docusate Sodium [Senna Plus 8.6-50 mg Softgel] 1 each PO DAILY #20 capsule Continue metFORMIN HCL ER [Glucophage XR] 500 mg PO 1700 Levothyroxine Sodium 125 mcg PO QAM Fenofibrate Nanocrystallized [Fenofibrate] 145 mg PO QAM Donepezil HCl [Aricept] 10 mg PO QAM Citalopram Hydrobromide [Citalopram HBr] 40 mg PO QAM Fluocinonide [Lidex 0.05%] 1 applic TOPICAL HS Fexofenadine HCl [Orin Allergy] 180 mg PO QAM PRN PRN Reason: allergies lisinopriL 40 mg PO HS traZODone HCL [Desyrel] 50 mg PO HS Ezetimibe [Zetia] 10 mg PO QAM Omeprazole [PriLOSEC] 20 mg PO AC-BRKFST Metoprolol Succinate (ER) [Toprol XL] 50 mg PO QAM Tiotropium 18 Mcg/Puff [Spiriva] 1 puff INHALATION HS Chlorthalidone 25 mg PO QAM Aspirin [Adult Low Dose Aspirin EC] 81 mg PO QAM Acetaminophen [Tylenol Extra Strength] 1 - 2 tab PO Q8H PRN PRN Reason: Pain Multivit-Min/Iron/Folic/Lutein [Centrum Silver Women Tablet] 1 each PO QAM NIFEdipine [Adalat CC] 30 mg PO QAM Discontinued Magnesium(Unk) 1 tab PO QAM Iron Glycinate(Unknown Dose) 2 tab PO QAM Cephalexin [Keflex] 500 mg PO Q12HR Potassium Gluconate(Unk) 1 tab PO QAM Discharge Medication List Acetaminophen [Tylenol Extra Strength] 1 - 2 tab PO Q8H PRN 07/27/24 [History] Aspirin [Adult Low Dose Aspirin EC] 81 mg PO QAM 07/27/24 [History] Chlorthalidone 25 mg PO QAM 07/27/24 [History] Citalopram Hydrobromide [Citalopram HBr] 40 mg PO QAM 07/27/24 [History] Donepezil HCl [Aricept] 10 mg PO QAM 07/27/24 [History] Ezetimibe [Zetia] 10 mg PO QAM 07/27/24 [History] Fenofibrate Nanocrystallized [Fenofibrate] 145 mg PO QAM 07/27/24 [History] Levothyroxine Sodium 125 mcg PO QAM 07/27/24 [History] Metoprolol Succinate (ER) [Toprol XL] 50 mg PO QAM 07/27/24 [History] Multivit-Min/Iron/Folic/Lutein [Centrum Silver Women Tablet] 1 each PO QAM 07/27/24 [History] Omeprazole [PriLOSEC] 20 mg PO AC-BRKFST 07/27/24 [History] Tiotropium 18 Mcg/Puff [Spiriva] 1 puff INHALATION HS 07/27/24 [History] lisinopriL 40 mg PO HS 07/27/24 [History] metFORMIN HCL ER [Glucophage XR] 500 mg PO 1700 07/27/24 [History] traZODone HCL [Desyrel] 50 mg PO HS 07/27/24 [History] Fexofenadine HCl [Orin Allergy] 180 mg PO QAM PRN 10/11/24 [History] Fluocinonide [Lidex 0.05%] 1 applic TOPICAL HS 10/11/24 [History] NIFEdipine [Adalat CC] 30 mg PO QAM 10/11/24 [History] Acetaminophen-Codeine 300-30mg [Tylenol w/codeine #3] 1 tab PO Q6H PRN #28 tablet 10/18/24 [Rx] Aspirin [Adult Low Dose Aspirin EC] 81 mg PO BID #60 tab 10/18/24 [Rx] INSULIN ASPART (NovoLOG) [NovoLOG (formulary)] 0 unit SQ ACHS each 10/18/24 [Rx] Sennosides/Docusate Sodium [Senna Plus 8.6-50 mg Softgel] 1 each PO DAILY #20 capsule 10/18/24 [Rx] Follow up Appointment(s)/Referral(s): Yanira Jimenez MD [Primary Care Provider] - 1 Week Niles Mclaughlin PAC [PHYSICIAN FAB[employer]IC PATTERN GRADER] - 2 Weeks Patient Instructions/Handouts: Shoulder Arthroplasty (GEN) Activity/Diet/Wound Care/Special Instructions: Orthopedic Discharge Instructions: 1. Wound care and infection precautions, keep incision dry and covered while showering, no lotions, creams, moisturizers. No soaking, pools, hot tubs. Do not scrub over incision. 2. Nonweightbearing left upper extremity until follow-up. 3. Ice when necessary. Do not exceed 20 minutes per hour with ice pack. 4. Utilize sling to left upper extremity until seen at first follow up appointment. 5. Pain meds and anticoagulants per prescription. 6. Pain medication has potential to cause constipation. Increase oral fluid and fiber intake. Contact primary care provider if you have not had a bowel movement within 48 hours after discharge. 7. No anti-inflammatory medication until discussed at first post operative visit, this including Motrin, Aleve, Mobic, Diclofenac. 8. Follow up in office at 2 weeks postop with Weston Poon PA-C / Niles Mclaughlin PA-C 9. Follow up with your primary care doctor 7-10 days after discharge. 10. Contact [facility] with any questions, . Keep incision clean, dry, intact. While showering, cover steri-strips with Saran wrap. Keep steri-strips on until follow-up appointment in office in 2 weeks. Discharge Disposition: TRANSFER TO SNF/ECF
[2024-10-18 14:46] VITALS: BP 149/69; PULSE 60; TEMP 98.3
--- NOTE | 2024-10-18 15:10 | P.PN ---
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 Patient is undergone left shoulder surgery. Pain is present. Left arm in a sling. No nausea vomiting. No chest pain. Reclining in bed. Did tolerate some meal. Chronic stable medical condition include COPD, CAD, diabetes GERD hard of hearing hypertension hyperlipidemia kidney disease hypothyroid, IBS. Does not u se CPAP. Urine incontinence. Patient had diarrhea yesterday from her IBS.'s abdominal discomfort. October 16: Up in recliner. Tolerating diet. Pain present. Looking at possible rehab. October 17: Eating fair. In bed. Looking to go to rehab. Some pain is present. No other issues. October 18: Some pain in the left shoulder. Eating fair. Looking to go to rehab today. Working with therapy. Spoke to the patient daughter at the bedside. Active Medications Acetaminophen/Codeine Phosphate (Acetaminophen-Codeine 300-30mg Tab) 1 each PO Q6HR PRN PRN Reason: Pain Scale 4 to 5 Stop: 11/14/24 09:32 Last Admin: 10/18/24 07:27 Dose: 1 each Hydrocodone Bitart/Acetaminophen (Hydrocodone/Apap 5-325mg 1 Each Tab) 1 each PO Q6HR PRN PRN Reason: Pain Scale 6 To 8 Stop: 11/14/24 09:32 Aspirin (Aspirin 81 Mg) 81 mg PO BID [facility] Stop: 11/14/24 20:59 Last Admin: 10/18/24 08:49 Dose: 81 mg Dextrose/Water (Dextrose 50% Syringe 50 Ml) 25 ml IVP PER PROTOCOL PRN; Protocol PRN Reason: Hypoglycemia Dextrose/Water (Dextrose 50% Syringe 50 Ml) 50 ml IVP PER PROTOCOL PRN; Protocol PRN Reason: Hypoglycemia Hydromorphone HCl (Hydromorphone 0.5 Mg/0.5 Ml Syringe) 0.5 mg IVP Q3HR PRN PRN Reason: Pain Scale 9 to 10 Stop: 11/14/24 09:32 Last Admin: 10/17/24 16:35 Dose: 0.5 mg Lactated Ringer's (Lactated Ringers) 1,000 mls @ 20 mls/hr IV .Q24H [facility] Stop: 11/14/24 06:07 Last Admin: 10/18/24 06:07 Dose: Not Given Insulin Aspart (Insulin Aspart (Novolog) 100 Unit/Ml Vial) 0 unit SQ [facility]; Protocol Last Admin: 10/18/24 12:24 Dose: Not Given Chlorthalidone 25 Mg (Tab) 1 each PO QAM [facility] Last Admin: 10/18/24 08:51 Dose: 1 each Citalopram [facility]bromide 20 Mg Tab [facility] Last Admin: 10/18/24 08:52 Dose: 2 each Donepezil 10 Mg Tab 1 each PO HS [facility] Last Admin: 10/17/24 21:07 Dose: 1 each Ezetimibe 10 Mg Tab [facility] [place] Last Admin: 10/18/24 08:53 Dose: 1 each Fenofibrate Nanocrystallized [ Fenofibrate] 145 Mg Tablet 145 mg PO [facility] Last Admin: 10/18/24 08:51 Dose: 145 mg Levothyroxine 125 (Mcg Tab) 125 each PO MoTuWeThFrSa [facility] Last Admin: 10/18/24 06:13 Dose: 125 each Lisinopril [ Lisinopril] 40 Mg Tablet 40 mg PO [facility] Last Admin: 10/17/24 21:08 Dose: 40 mg Metformin Hcl Er 500 (Mg Tab.Er.24h) 500 mg PO 1700 [facility] Last Admin: 10/17/24 16:37 Dose: 500 mg Metoprolol Succinate (Er) 50 Mg Tab.Er. 24h 1 each PO [facility] Last Admin: 10/18/24 08:53 Dose: 1 each Nifedipine [Adalat (Cc] 30 Mg Tablet.Er) 30 mg PO [facility] Last Admin: 10/18/24 08:51 Dose: 30 mg Omeprazole 20 Mg (Capsule.Dr) 20 mg PO AC-BRKFST [facility] Last Admin: 10/18/24 07:27 Dose: 20 mg Trazodone 50 Mg (Tablet) 1 each PO [facility] Last Admin: 10/17/24 21:08 Dose: 1 each Ondansetron HCl (Ondansetron 4 Mg/2 Ml Vial) 4 mg IVP DAILY PRN PRN Reason: Nausea And Vomiting Stop: 11/14/24 09:32 Last Admin: 10/16/24 08:10 Dose: 4 mg Senna/Docusate Sodium (Sennosides-Docusate Sodium 1 Each Tab) 2 each PO HS PRN PRN Reason: Constipation Stop: 11/14/24 09:32 Social history: Smoked for 53 years. 1/2 packs a day. Stopped in 2023. No alcohol. Lives alone Physical examination: VITAL SIGNS: 98.3, 60, 16, 149 x 69, 95% room air GENERAL: BMI 25.7, reclining and eating her lunch EYES: Pupils equal. Conjunctiva soila l. HEENT: External appearance of nose and ears normal, oral cavity grossly normal. NECK: JVD not raised; masses not palpable. HEART: First and second heart sounds are normal; no edema. LUNGS: Respiratory rate normal; decreased breath sounds. ABDOMEN: Soft, nontender, liver spleen not palpable, no masses palpable. PSYCH: Alert and oriented x3; mood and affect soila l. MUSCULOSKELETAL:No Clubbing/cyanosis;muscles-grossly intact. Left arm in a sli ng INVESTIGATIONS, reviewed in the clinical context: White count 10.1 hemoglobin 10.8 platelets 383 sodium 142 potassium 4.2 BUN 24 creatinine 1.06 Assessment plan: -Left reverse total shoulder arthroplasty Pain management. Left arm in a sling -Depression Celexa 20 mg a day -Hyperlipidemia Zetia, fenofibrate -Hypothyroid Levothyroxine -Essential hypertension Lisinopril. Nifedipine. Toprol-XL. -Mild cognitive impairment Aricept -GERD Prilosec -Chronic kidney disease stage II/III. Likely nephrosclerosis -Anemia of chronic kidney disease -COPD in a prior smoker Spiriva. -Disposition: Pending rehab -No code Patient be getting discharged to [facility]. Medications reviewed. Discussed Thank you Dr. Riojas Past Medical History Past Medical History: Coronary Artery Disease (CAD), Chest Pain / Angina, COPD, Diabetes Mellitus, GERD/Reflux, Hearing Disorder / Deafness, Hyperlipidemia, Hypertension, Renal Disease, Skin Disorder, Sleep Apnea/CPAP/BIPAP, Thyroid Disorder Additional Past Medical History / Comment(s): Current Seborrheic dermatitis/psoriasis and foliculitis on scalp- pt states she has wounds d/t scratching her scalp.seasonal allergies, IBS, ckd, doesn't use cpap. Urinary incontinence. "Abnormal heartbeat" "Iron a lttle low.' "Memory Imbalance." Type II diabetic NIDDM. Arthritis. "They nuked my thyroid. " "I have Graves disease." History of Any Multi-Drug Resistant Organisms: None Reported Past Surgical History: Appendectomy, Back Surgery, Cholecystectomy, Coronary Bypass/CABG, Tonsillectomy, Tubal Ligation Additional Past Surgical History / Comment(s): triple bypass at age 44. Colonoscopy. Past Anesthesia/Blood Transfusion Reactions: No Reported Reaction, Postoperative Nausea & Vomiting (PONV) Additional Past Anesthesia/Blood Transfusion Reaction / Comm: No hx of blood transfusions to date. Past Psychological History: Anxiety, Depression Smoking Status: Former smoker Past Alcohol Use History: None Reported Additional Past Alcohol Use History / Comment(s): quit january 2024, started smoking at age 18years of age, smoked 1.5ppd Past Drug Use History: None Reported
== END 2024-10-18 16:08 ==
LOC: OR 05:54 → 4SSUR 09:40 → OR 10-16 04:30 → 4SSUR 10-16 04:30
PROVIDERS: ADMIT Orthopaedic Surgery; ATTEND Orthopaedic Surgery
DX: M12.812 Other specific arthropathies, not elsewhere classified, left shoulder (principal); M75.102 Unspecified rotator cuff tear or rupture of left shoulder, not specified as traumatic; I12.9 Hypertensive chronic kidney disease with stage 1 through stage 4 chronic kidney disease, or unspecified chronic kidney disease; N18.30 Chronic kidney disease, stage 3 unspecified; D63.1 Anemia in chronic kidney disease; E03.9 Hypothyroidism, unspecified; E11.22 Type 2 diabetes mellitus with diabetic chronic kidney disease; I25.10 Atherosclerotic heart disease of native coronary artery without angina pectoris; J44.9 Chronic obstructive pulmonary disease, unspecified; K21.9 Gastro-esophageal reflux disease without esophagitis; E78.5 Hyperlipidemia, unspecified; K58.9 Irritable bowel syndrome, unspecified; H91.90 Unspecified hearing loss, unspecified ear; R32 Unspecified urinary incontinence; K58.0 Irritable bowel syndrome with diarrhea; G47.33 Obstructive sleep apnea (adult) (pediatric); E05.00 Thyrotoxicosis with diffuse goiter without thyrotoxic crisis or storm; F32.A Depression, unspecified; G31.84 Mild cognitive impairment of uncertain or unknown etiology; Z79.82 Long term (current) use of aspirin; Z79.84 Long term (current) use of oral hypoglycemic drugs; Z79.890 Hormone replacement therapy; Z88.2 Allergy status to sulfonamides; Z88.5 Allergy status to narcotic agent; Z87.891 Personal history of nicotine dependence
CPT/HCPCS: 23472; 94760; 97162; 97166; 64415; 80048; 85025; 85027; 85610; 83036; 73030; G0378; C1776; J2250; J0330; J1100; J2710; J0690 ×3; J2405 ×2; J2003; J3010; J2795; J2704; J1171 ×3; J2371; J1596